=== PATIENT | male | born 2000 | race Caucasian/White ===

== ENCOUNTER 2020-01-25 15:34 | Emergency (ER) | payer BC, SELFPAY ==
[2020-01-25 15:48] VITALS: BP 145/87; PULSE 67; RESP 16; TEMP 37; O2SAT 100; BMI 17.6
[2020-01-25 16:04] VITALS: BP 145/87; PULSE 67; RESP 16; TEMP 37; O2SAT 100
--- NOTE | 2020-01-25 16:08 | HMH.EDUTC ---
[facility] [place] Disposition Clinical Impression: Shingles Qualifiers: Herpes zoster complications: without complications Qualified Code(s): B02.9 - Zoster without complications Disposition: Home, Self-Care Condition on Discharge: Good Instructions: Shingles, Shingles (Herpes Zoster) (Alternative Therapy), DI for Shingles, Acyclovir Additional Instructions: Shingles is a painful rash. Shingles is caused by the same virus that causes chickenpox (varicella-zoster). After you get chickenpox, the virus stays in your body for several years without causing any symptoms. Shingles occurs when the virus becomes active again. The active virus travels along a nerve to your skin and causes a rash. Antiviral medicine helps decrease symptoms and healing time. They may also decrease your risk of developing nerve pain. You will need to start taking them within 3 days of the start of symptoms to prevent nerve pain Keep your rash clean and dry. Cover your rash with a bandage or clothing. Do not use bandages that stick to your skin. The sticky part may irritate your skin and make your rash last longer Take your medicines exactly as prescribed. Call your doctor or nurse call line if you think you are having a problem with your medicine. Antiviral medicine helps you get better faster and may help prevent later problems Try not to scratch or pick at the blisters. They will crust over and fall off on their own if you leave them alone. Put cool, wet cloths on the area to relieve pain and itching. You can also use calamine lotion. Try not to use so much lotion that it cakes and is hard to get off. To help remove loose crusts, soak them in tap water. This can help decrease oozing, and dry and soothe the skin. Take an dzjy-kuu-fcypthx pain medicine, such as acetaminophen (Tylenol), ibuprofen (Advil, Motrin), or naproxen (Aleve). Avoid close contact with people until the blisters have healed. It is very important for you to avoid contact with anyone who has never had chickenpox or the chickenpox vaccine. women, young babies, and anyone else who has a hard time fighting infection (such as someone with HIV, diabetes, or cancer) is especially at risk. Return if needed Follow up with Family Doctor if any worsening of symptoms or pain' Follow up with Eye Doctor if any changes in visions or lesions appearing in eye Straight to ER if any life threatening symptoms Stop taking Keflex and Prednisone and start your Acylovir immediately Prescriptions: Acyclovir [Acyclovir 800mg tab] 800 mg PO 5XDAY 7 Days #35 tab Transmission Status: Pending to [facility] Referrals: Branden Pope MD [Primary Care Provider] - As needed [facility] [Other] Time of Disposition: 16:26 Medical Decision Making - Segundo Inquiry Pt receiving controlled substance: No Segundo was queried for this patient: No Vital Signs: 01/25/20 15:48 01/25/20 16:04 Temperature 98.6 F 98.6 F Temperature Source Oral Pulse Rate 67 Pulse Rate [Left] 67 Respiratory Rate 16 16 Blood Pressure 145/87 H Blood Pressure [Right Arm] 145/87 H Blood Pressure Mean [Right Arm] 106 Blood Pressure Source [Right Arm] Automatic Cuff Blood Pressure Position [Right Arm] Sitting 02 Sat by Pulse Oximetry 100 Oxygen Delivery Method Room Air [facility] [place] HPI - General Stated complaint: Rash forhead,possible med reaction Time Seen by Provider: 01/25/20 16:00 Mode of Arrival: Ambulatory Source of Information: Patient Limitations: No Limitations Description of Symptoms (Recalled from Triage Doc. by RN): Allergic reaction-Pt states that he was just started on some new medication that he thinks he is having a reaction to. Rash is on his forehead and eyebrow HEENT Symptoms (Recalled from RN notes): No Resp Symptoms (Recalled from RN notes): No Skin Symptoms (Recalled from RN notes): Yes MS Symptoms (Recalled from RN notes): No Functional Status (Recalled from RN notes): stable - History of Present I
== END 2020-01-25 16:31 | disposition home or self-care (01) ==
PROVIDERS: Emergency Provider Nurse Practitioner; PCP Family Medicine
DX: B02.9 Zoster without complications (principal)
CPT/HCPCS: 99201

== ENCOUNTER 2022-01-04 11:36 | Emergency (ER) | payer BC, SELFPAY ==
[2022-01-04 12:39] VITALS: BP 142/72; PULSE 60; RESP 16; TEMP 36.5; O2SAT 100; BMI 19.0
--- NOTE | 2022-01-04 12:51 | EXP.UTC ---
Discharge Plan Disposition Patient Disposition: Home, Self-Care Condition: Good Prescriptions Prescriptions: New azithromycin [Zithromax] 250 mg tablet 250 mg PO UD DOSE PK Qty: 6 0RF Rx Instructions: Take two (2) tablets today, then one (1) tablet days #2 thru #5 methylprednisolone 4 mg Tablets,Dose Pack 4 mg PO DIRECTED Qty: 21 0RF kufvugjhsonvdsg-rjxxizlty-AQ [Bromfed DM] 2-30-10 mg/5 mL Syrup 5 ml PO Q6H PRN (Reason: Cough) Qty: 240 0RF No Action Flintstones Multivitamin Tablet,Chewable 1 tab PO DAILY ascorbic acid (vitamin C) 500 mg capsule PO montelukast [Singulair] 10 mg tablet 10 mg PO QPM Qty: 90 1RF loratadine 10 mg tablet 10 mg PO DAILY Qty: 90 2RF Rx Instructions: 10 mg PO daily; bupropion HCl 300 mg tablet extended release 24 hr See Rx Instructions .ROUTE .COMPLEX Qty: 90 2RF Dose Instruction: TAKE ONE TABLET BY MOUTH EVERY DAY Rx Instructions: TAKE ONE TABLET BY MOUTH EVERY DAY Referrals Follow up/Referrals: Renuka Salinas PA [Primary Care Provider] - See instructions Activity Restrictions/Add. Instructions Additional Instructions/Restrictions: Drink plenty of fluids. Take tylenol or ibuprofen for pain or fever. Take the medications as directed. Follow up with your regular doctor. GO TO THE ER FOR ANY WORSENING SYMPTOMS Clinical Impressions Clinical Impression: Sinusitis Stand Alone Forms Stand Alone Forms: Work/School Release Instructions Patient Instructions: Sinusitis, DI for Sinusitis Discharge ED Provider: Eusebio Starkey [facility] General Stated complaint: allergies Mode of Arrival: Ambulatory Source of Information: Patient Limitations: No Limitations Time Seen by Provider: 01/04/22 12:26 Description of Symptoms (Recalled from Triage Doc. by RN): pt c/o allergies. began 2 days ago, gets this every year. HEENT Symptoms (Recalled from RN notes): Yes Resp Symptoms (Recalled from RN notes): Yes Skin Symptoms (Recalled from RN notes): No MS Symptoms (Recalled from RN notes): No Functional Status (Recalled from RN notes): n/a History of Present Illness Provider Complaint: He has had a cough, low grade fever and he has felt bad for the past 2 days. Related Data Home Medications Medication Instructions Recorded Confirmed ascorbic acid (vitamin C) 500 mg mg PO 05/24/20 10/01/21 capsule pediatric multivitamin 1 tab PO DAILY 05/24/20 10/01/21 (Flintstones Multivitamin) Previous Rx's Medication Instructions Recorded bupropion HCl 300 mg 24 hr tablet, See Rx Instructions .Route 10/01/21 extended release .COMPLEX #90 tabs loratadine 10 mg tablet 10 mg PO DAILY #90 tabs 10/01/21 montelukast 10 mg tablet 10 mg PO QPM #90 tabs 10/01/21 (Singulair) azithromycin 250 mg tablet 250 mg PO UD DOSE PK #6 tabs 01/04/22 (Zithromax) wrmteprgbjfonvm-fgrpggzajvcigch-WV 5 ml PO Q6H PRN Cough #240 mL 01/04/22 2 mg-30 mg-10 mg/5 mL oral syrup (Bromfed DM) methylprednisolone 4 mg tablets in 4 mg PO DIRECTED #21 tabs 01/04/22 a dose pack Allergies Allergy/AdvReac Type Severity Reaction Status Date / Time Penicillins Allergy Unknown mother and Verified 01/04/22 12:41 father are allergic, does not wish to be on it. Worker's Comp Is this a Worker's Comp case?: No PFSH PFSH Medical History Allergies Depression Social History Smoking Status: Never smoker second hand exposure: No alcohol intake: never substance use type: denies use current occupational status: employed and student current occupational exposures/hazards: No caffeine: Yes ROS Obtained: Yes All systems reviewed & no additional complaints except as documented Constitutional Constitutional: Reports chills and Reports fever(s) Eyes Eyes: Denies ey
[2022-01-04 13:11] VITALS: BP 142/72; PULSE 60; RESP 16; TEMP 36.5
== END 2022-01-04 13:15 | disposition home or self-care (01) ==
PROVIDERS: Emergency Provider Nurse Practitioner Family; PCP Physician Assistant
DX: J32.9 Chronic sinusitis, unspecified (principal); R05.9 Cough, unspecified; R50.9 Fever, unspecified; R11.0 Nausea; T78.40XA Allergy, unspecified, initial encounter; Z79.52 Long term (current) use of systemic steroids; Z79.899 Other long term (current) drug therapy; Z88.0 Allergy status to penicillin
CPT/HCPCS: 99213; G0463

== ENCOUNTER 2023-07-05 12:24 | Outpatient (CLI) | payer BC, SELFPAY ==
[2023-07-05 18:35] LABS: Basophils % 0.4 % (0.1-2.0); Eosinophils # 0.1 K/mm3 (0.0-0.4); Hematocrit 43.9 % (42.0-52.0); Hemoglobin 14.9 g/dL (14.1-18.0); Lymphocytes # 2.5 K/mm3 (0.7-4.5); Lymphocytes % 34.8 % (10-50); Mean Corpuscular Hemoglobin 31.9 pg (27.0-31.2); Mean Corpuscular Volume 93.9 fl (80-94); Mean Platelet Volume 8.9 fl (7.4-10.4); Monocytes # 0.4 K/mm3 (0.1-1.0); Monocytes % 6.1 % (1.7-9.3); Neutrophils % 56.8 % (37.0-80.0); Platelet Count 206 K/mm3 (142-424); Red Blood Count 4.68 M/mm3 (4.60-6.20); Red Cell Distribution Width 13.5 % (11.5-17.5); White Blood Count 7.1 K/mm3 (4.8-10.8)
[2023-07-05 18:38] LABS: Chloride 104 mmol/L (98-107); Sodium 140 mmol/L (136-145)
[2023-07-05 18:39] LABS: Potassium 4.1 mmoL/L (3.5-5.1)
[2023-07-05 18:41] LABS: Alanine Aminotransferase 21 U/L (12-78); Albumin/Globulin Ratio 2.1 (1.1-1.8); Alkaline Phosphatase 79 U/L (38-126); Anion Gap 10.1 mEq/L (5-15); Aspartate Amino Transferase 27 U/L (17-59); Bilirubin,Total 0.5 mg/dl (0.2-1.3); Blood Urea Nitrogen 15 mg/dl (9-20); Carbon Dioxide 30 mmol/L (22.0-30.0); Cholesterol 175 mg/dl (140-200); Estimated Glomerular Filt Rate 119 ml/min (>60); GFR (African American) 144 ML/MIN (>60); Globulin 2.4 g/dL (1.3-3.2); Total Protein,Serum 7.4 g/dl (6.3-8.2); Triglycerides 86 mg/dl (30-150); VLDL Cholesterol 17 mg/dL (0-40)
[2023-07-05 18:42] LABS: Calcium 9.6 mg/dl (8.4-10.2); Chol/HDL Ratio 4.3 (1-3.5); Glucose 79 mg/dl (74-100); HDL Cholesterol 41 mg/dl (40-60)
[2023-07-05 18:53] LABS: Direct LDL Cholesterol 106.32 mg/dL (100-129)
[2023-07-05 19:11] LABS: Thyroid Stimulating Hormone 3.44 uIU/mL (0.465-4.68)
[2023-07-05 19:24] LABS: 25-OH Vitamin D, Total 45.7 ng/mL (30-100)
== END 2023-07-05 23:59 ==
LOC: LAB.DROPOF 07-06 12:24
PROVIDERS: Visit Provider Family Medicine
DX: R53.83 Other fatigue (principal); J30.9 Allergic rhinitis, unspecified; T78.40XD Allergy, unspecified, subsequent encounter; Z79.899 Other long term (current) drug therapy
CPT/HCPCS: 80053; 80061; 82306; 84443; 85025